=== PATIENT | male | born 1975 | race Two or more races ===

== ENCOUNTER 2016-09-27 15:27 | Emergency (ER) | payer SELFPAY ==
[2016-09-27 16:25] LABS: ABSOLUTE NEUTROPHIL COUNT 3.2 K/mm3 (1.8-7.7); BASO % 0.6 % (0.2-1.0); EOS # 0.1 (0.0-0.5); EOS % 1.2 % (0.9-2.9); HEMOGLOBIN 15.3 gm/l (14.0-18.0); IMM NEUT% 0.4 % (0-1); LYMPH # 1.2 (1.0-4.8); LYMPH % 24.9 % (15-45); MEAN CELL VOLUME 86.3 fl (80.0-94.0); MEAN CORPUSCULAR HEMOGLOBIN 30.7 pg (27.0-31.0); MEAN CORPUSCULAR HGB CONC 35.6 g/dl (33.0-37.0); MEAN PLATELET VOLUME 11.1 fl (7.4-10.4); MONO # 0.4 (0.0-0.8); NEUT % 64.9 % (43-75); PLATELET COUNT 102 K/mm3 (130-400); RED CELL DISTRIBUTION WIDTH 12.3 % (11.5-14.5)
[2016-09-27 16:46] LABS: ALB/GLOB RATIO 1.3 (>1.0); ALBUMIN 4.2 gm/dL (3.5-5.7); CALCIUM 9.4 mg/dL (8.6-10.3)
[2016-09-27] MEDS ORDERED: ACETAMINOPHEN 500 MG TABLET ONE (16:48)
--- NOTE | 2016-09-27 16:52 | CT ---
HEAD W/O CON: 09/27/2016 4:13 PM CLINICAL HISTORY: Headaches. Question of cysticercosis. COMPARISON: None. TECHNIQUE: Contiguous axial 5 mm images from skull base to the vertex were obtained without IV contrast. Sagittal and coronal reformations with bone algorithm images were also obtained at this time. CT DI:: 51.7 DLP: 964.8 FINDINGS: Infarct: None Extra axial spaces: Normal in size and morphology for the patient's age. Hemorrhage: None. Ventricular system: Normal in size and morphology for the patient's age. Basal cisterns: Normal. Cerebral parenchyma: Normal. Midline shift: None. Cerebellum: Normal. Brainstem: Normal. OTHER: Calvarium: Normal. Vascular system: Normal. Visualized Paranasal sinuses and Mastoid air cells: Clear. Visualized Orbits and regional soft tissues: Normal. IMPRESSION: Normal examination. No evidence of neurocysticercosis. Report was uploaded to the electronic medical record at approximately 1648 hours on 09/27/2016
[2016-09-27 16:57] LABS: SPECIFIC GRAVITY 1.015 (1.001-1.030); URINE BILIRUBIN NEGATIVE (NEGATIVE); URINE BLOOD NEGATIVE (NEGATIVE); URINE GLUCOSE (UA) NEGATIVE (NEGATIVE); URINE LEUKOCYTE ESTERASE NEGATIVE (NEGATIVE); URINE NITRITE NEGATIVE (NEGATIVE); URINE PROTEIN NEGATIVE (NEGATIVE); URINE UROBILINOGEN NORMAL (0-1 mg/dl)
--- NOTE | 2016-09-27 17:00 | RAD ---
09/27/2016 4:56 PM CHEST - 2 VIEWS History: Generalized nodularity throughout the soft tissues. Comparison: None Findings: Two views of the chest are obtained. The lungs are clear with out effusion or pneumothorax. The cardiomediastinal silhouette is unremarkable.. The osseous structures are intact.. IMPRESSION: No acute intrathoracic process.
--- NOTE | 2016-09-27 17:00 | US ---
EXTREMITY UPPER RT NON VASC HISTORY: Palpable nodule along the lateral humerus for 6 months. Right mid forearm palpable lesion for one year. Areas to fluctuate in size though are not painful. COMPARISONS: None FINDINGS: Multiple grayscale, and color flow images during soft tissue ultrasound are obtained. In the area of palpable concern along the lateral humerus is a 2.9 x 2.8 x 1.4 cm nodule. This has an echogenic hilum with increased vascularity along the hilum. Findings likely relate to adenopathy. This resides within the subcutaneous fat and does not appear to violate the superficial or deep fascial planes. Within the volar forearm is a 2.2 x 1.8 x 0.6 cm isoechoic to fat lesion. This does not extend to the deeper or more superficial fascial planes. IMPRESSION: Probable lymph node along the lateral humerus. Other lesions are possible. Histologic sampling may be necessary for definitive diagnosis. Probable lipomatous lesion within the volar aspect of the right forearm. Ultrasound cannot differentiate between more aggressive forms of lipomatous lesions, and if there is a clinical concern for this MRI with and without contrast be recommended. Findings were called to Dr. Tang at approximately 1655 hours on 09/27/2016.
[2016-09-27 17:01] LABS: URINE APPEARANCE CLEAR; URINE COLOR DARK YELLOW
== END 2016-09-27 18:04 | disposition home or self-care (01) ==
LOC: ED 15:27 → EDBD 15:27 → ED 18:04
DX: R50.9 Fever, unspecified (principal); R51 Headache; B34.9 Viral infection, unspecified; E88.2 Lipomatosis, not elsewhere classified; R22.31 Localized swelling, mass and lump, right upper limb
CPT/HCPCS: 85025; 87040; 80053; 85651; 81003; 71020; 70450; 87804; 76881; 99284; 99283; A9270